=== PATIENT | male | born 1965 | race American Indian/Alaskan Native ===

== ENCOUNTER 2016-07-07 09:25 | Emergency (ER) | payer OTHER ==
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
[2016-07-07] MEDS ORDERED: CATAPRES PO ONE (11:54)
[2016-07-07 13:08] VITALS: BP 159/109
== END 2016-07-07 13:33 | disposition home or self-care (01) ==
LOC: ED 09:25
DX: S16.1XXA Strain of muscle, fascia and tendon at neck level, initial encounter (principal); F17.200 Nicotine dependence, unspecified, uncomplicated; V49.49XA Driver injured in collision with other motor vehicles in traffic accident, initial encounter; Y93.9 Activity, unspecified; Y92.9 Unspecified place or not applicable; Y99.9 Unspecified external cause status
CPT/HCPCS: 72125; 99283